=== PATIENT | female | born 1980 | race African-American/Black ===

== ENCOUNTER 2016-11-11 01:35 | Emergency (ER) | payer OTHER ==
[~2016-11-11] VITALS: Ht 167.6 cm; Wt 113.4 kg
[~2016-11-11 01:35] MED LIST: IRON45TA7 PO
[2016-11-11 01:56] VITALS: BP 134/79
--- NOTE | 2016-11-11 02:23 | NUR ---
Patient being evaluated by physician.
--- NOTE | 2016-11-11 02:27 | NUR ---
Fei mena in ED - 11/11/16 at 0235 by MED[facility] ABHIJIT STANLEY TO ER [facility]
--- NOTE | 2016-11-11 02:27 | NUR ---
BIBA BLS TO ER OF3 ACCOMPANIED BY [place] [employer]
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
--- NOTE | 2016-11-11 02:55 | NUR ---
Patient discharged with v/s stable. Written and verbal after care instructions given and explained. Patient verbalized understanding. Ambulatory with steady gait. All questions addressed prior to discharge. Advised to follow up with PMD. CUSTODY.
--- NOTE | 2016-11-11 02:55 | NUR ---
PATIENT BIB [facility] [employer]. PATIENT EXAMINED BY DR. HECTOR. PATIENT MEDICALLY CLEARED AND RELEASED IN CUSTODY IN STABLE CONDITION. ORIGINAL PRE-BOOK FORM GIVEN TO OFFICER LEORA.
[2016-11-11 02:56] VITALS: BP 130/75
== END 2016-11-11 02:55 ==
LOC: MED 01:35
DX: F41.0 Panic disorder [episodic paroxysmal anxiety] (principal); F43.10 Post-traumatic stress disorder, unspecified; Z91.040 Latex allergy status; E11.9 Type 2 diabetes mellitus without complications; J45.909 Unspecified asthma, uncomplicated; K21.9 Gastro-esophageal reflux disease without esophagitis
CPT/HCPCS: 81002; 81025; 93005; 99283; 99284

== ENCOUNTER 2016-12-03 10:46 | Emergency (ER) | payer OTHER ==
[~2016-12-03] VITALS: Ht 172.7 cm; Wt 110.2 kg
[~2016-12-03 10:46] MED LIST changes: -IRON45TA7 PO; +NATURAL IRON65 MG PO; +NORVASC5 MG PO; +[UNRECOGNIZED DRUG - OTHER] PO
[2016-12-03 10:51] VITALS: BP 145/84
--- NOTE | 2016-12-03 11:10 | NUR ---
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
--- NOTE | 2016-12-03 11:55 | NUR ---
DR ALEGRIA AT BEDSIDE.
--- NOTE | 2016-12-03 12:29 | NUR ---
PT RESTING ON BED;NO ACUTE DISTRESS NOTED AT THIS TIME;NEEDS ATTENDED;WILL CONTINUE TO MONITOR PT.
--- NOTE | 2016-12-03 12:49 | NUR ---
Patient discharged with v/s stable. Written and verbal after care instructions given and explained. Patient alert, oriented and verbalized understanding of instructions. Ambulatory with steady gait. All questions addressed prior to discharge. ID band removed. Patient advised to follow up with PMD.Opportunity to ask questions provided and answered.
[2016-12-03 12:50] VITALS: BP 128/82
== END 2016-12-03 12:49 | disposition home or self-care (01) ==
LOC: MED 10:46
DX: T37.3X5A Adverse effect of other antiprotozoal drugs, initial encounter (principal); R03.0 Elevated blood-pressure reading, without diagnosis of hypertension; J45.909 Unspecified asthma, uncomplicated; E11.9 Type 2 diabetes mellitus without complications; K21.9 Gastro-esophageal reflux disease without esophagitis; Z91.040 Latex allergy status; Z88.2 Allergy status to sulfonamides; Y92.89 Other specified places as the place of occurrence of the external cause

== ENCOUNTER 2016-12-26 09:31 | Emergency (ER) | payer OTHER ==
[~2016-12-26] VITALS: Ht 167.6 cm; Wt 111.1 kg
[~2016-12-26 09:31] MED LIST changes: +IRON45TA7 PO; -NATURAL IRON65 MG PO; -NORVASC5 MG PO; -[UNRECOGNIZED DRUG - OTHER] PO
[2016-12-26 09:41] VITALS: BP 145/82
--- NOTE | 2016-12-26 10:03 | NUR ---
PATIENT PRESENTS TO ED WITH BUG BITE TO LEFT KNEE X3 DAYS WITH GEN WEAKNESS . PT STATES IT IS ITCHY;MILD REDNESS NOTED;FEELS NAUEASTED BUT DENIES V/D; SKIN IS PINK/WARM/DRY; AAOX4 WITH EVEN AND STEADY GAIT; LUNGS CLEAR BL; HR EVEN AND REGULAR; PT DENIES ANY FEVER, CP,OR COUGH AT THIS TIME; PATIENT STATES PAIN OF 0/10 AT THIS TIME; VSS; PATIENT POSITIONED FOR COMFORT; HOB ELEVATED; BEDRAILS UP X2; BED DOWN. ER MD MADE AT BEDSIDE.
--- NOTE | 2016-12-26 10:11 | NUR ---
Patient discharged with v/s stable. Written and verbal after care instructions given and explained. Patient alert, oriented and verbalized understanding of instructions. Ambulatory with steady gait. All questions addressed prior to discharge. ID band removed. Patient advised to follow up with PMD. Rx of BENADRYL AND KEFLEX given. Patient educated on indication of medication including possible reaction and side effects. Opportunity to ask questions provided and answered.
[2016-12-26 10:12] VITALS: BP 145/82
== END 2016-12-26 10:11 | disposition home or self-care (01) ==
LOC: MED 09:31
DX: L03.116 Cellulitis of left lower limb (principal); J45.909 Unspecified asthma, uncomplicated; E11.9 Type 2 diabetes mellitus without complications; K21.9 Gastro-esophageal reflux disease without esophagitis; Z88.2 Allergy status to sulfonamides; Z91.040 Latex allergy status
CPT/HCPCS: 99283

== ENCOUNTER 2017-02-16 16:05 | Emergency (ER) | payer OTHER ==
[~2017-02-16] VITALS: Ht 167.6 cm; Wt 112.5 kg
[2017-02-16 16:35] VITALS: BP 147/98
--- NOTE | 2017-02-16 17:53 | NUR ---
Patient to OF.
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
--- NOTE | 2017-02-16 18:18 | NUR ---
Patient being evaluated by SANDRA Jackson at bedside.
[2017-02-16 18:50] VITALS: BP 134/84
--- NOTE | 2017-02-16 18:50 | NUR ---
Chart checked and completed. The patient's care was reviewed and supervised by Kelby Oliver RN.
--- NOTE | 2017-02-16 18:50 | NUR ---
Patient discharged with v/s stable. Written and verbal after care instructions given and explained. Patient alert, oriented and verbalized understanding of instructions. Carried with steady gait. All questions addressed prior to discharge. ID band removed. Patient advised to follow up with PMD. Rx of PREDNISONE 50MG TAB & BENADRYL ALLERGY 25MG given. Patient educated on indication of medication including possible reaction and side effects. Opportunity to ask questions provided and answered.
== END 2017-02-16 18:50 | disposition home or self-care (01) ==
LOC: MED 16:05
DX: T78.49XA Other allergy, initial encounter (principal); R22.0 Localized swelling, mass and lump, head; R13.10 Dysphagia, unspecified; Z88.2 Allergy status to sulfonamides; Z91.040 Latex allergy status; X58.XXXA Exposure to other specified factors, initial encounter
CPT/HCPCS: 81002; 81025; 99283

== ENCOUNTER 2017-02-21 08:19 | Emergency (ER) | payer OTHER ==
[~2017-02-21] VITALS: Ht 167.6 cm; Wt 111.1 kg
[2017-02-21 08:21] VITALS: BP 158/94
--- NOTE | 2017-02-21 08:25 | NUR ---
Patient ambulated to bed 04.
[2017-02-21] MEDS ORDERED: ALBUTEROL SULFATE/IPRATROPIU 3 ML SOL IH ONE (08:30)
--- NOTE | 2017-02-21 08:30 | NUR ---
PT PRESENTS TO ER W/C/O SOB 5 DAYS. HX ASTHMA, GERD. DENIES N/V/D; SKIN IS PINK/WARM/DRY; AAOX4 WITH EVEN AND STEADY GAIT; LUNGS WHZ BL; HR EVEN AND REGULAR; PT DENIES ANY FEVER, CP, SOB, OR COUGH AT THIS TIME; PATIENT STATES PAIN OF 3/10 ON INSPIRATION AT THIS TIME; VSS; PATIENT POSITIONED FOR COMFORT; HOB ELEVATED; BEDRAILS UP X2; BED DOWN. ER MD MADE AWARE OF PT STATUS.
--- NOTE | 2017-02-21 08:33 | NUR ---
RT at bedside to give patient breathing treatment.
--- NOTE | 2017-02-21 08:34 | NUR ---
Dr. Grissom evaluating patient at bedside.
[2017-02-21 09:13] VITALS: BP 148/91
== END 2017-02-21 09:13 | disposition home or self-care (01) ==
LOC: MED 08:19
DX: F45.8 Other somatoform disorders (principal); F41.9 Anxiety disorder, unspecified; J30.2 Other seasonal allergic rhinitis; J45.909 Unspecified asthma, uncomplicated; E11.9 Type 2 diabetes mellitus without complications; K21.9 Gastro-esophageal reflux disease without esophagitis; I10 Essential (primary) hypertension; Z88.2 Allergy status to sulfonamides; Z91.040 Latex allergy status
CPT/HCPCS: 99283; J7620

== ENCOUNTER 2017-04-05 07:05 | Emergency (ER) | payer OTHER ==
[~2017-04-05] VITALS: Ht 167.6 cm; Wt 111.1 kg
[2017-04-05 07:19] VITALS: BP 139/86
[2017-04-05 08:27] LABS: BASOPHILS # (AUTO) 0.2 K/uL (0.00-0.22); BASOPHILS % (AUTO) 3.3 % (0.0-2.0); EOSINOPHILS # (AUTO) 0.3 K/uL (0-0.4); EOSINOPHILS % (AUTO) 4.7 % (0.0-4.0); HEMATOCRIT 33.2 % (36-48); HEMOGLOBIN 10.3 g/dL (12.0-16.0); LYMPHOCYTES % (AUTO) 28.9 % (20.5-51.1); MEAN CORPUSCULAR HEMOGLOBIN 22 pg (27-31); MEAN CORPUSCULAR HGB CONC 31 g/dL (33-37); MEAN CORPUSCULAR VOLUME 72 fL (80-94); MONOCYTES # (AUTO) 0.4 K/uL (0.8-1.0); MONOCYTES % (AUTO) 6.2 % (1.7-9.3); NEUTROPHILS % (AUTO) 56.9 % (42.2-75.2); PLATELET COUNT (AUTO) 387 K/uL (140-450); RED BLOOD CELL COUNT(AUTO) 4.64 MIL/uL (4.20-5.40); RED CELL DISTRIBUTION WIDTH 16.9 % (11.6-13.7); WHITE BLOOD COUNT (AUTO) 6.9 K/uL (4.8-10.8)
[2017-04-05 08:36] LABS: ANION GAP 12.9 (8-16); CARBON DIOXIDE 25.3 mmol/L (21-32); CREATININE 0.8 mg/dL (0.6-1.3); POTASSIUM 4.2 mmol/L (3.5-5.1)
[2017-04-05 09:11] VITALS: BP 149/96
--- NOTE | 2017-04-05 09:12 | NUR ---
Patient discharged with v/s stable. Written and verbal after care instructions given and explained. Patient alert, oriented and verbalized understanding of instructions. Ambulatory with steady gait. All questions addressed prior to discharge. ID band removed. Patient advised to follow up with PMD. Rx of HYDROCHLOROTHIAZIDE given. Patient educated on indication of medication including possible reaction and side effects. Opportunity to ask questions provided and answered.
== END 2017-04-05 09:12 | disposition home or self-care (01) ==
LOC: MED 07:05
DX: I10 Essential (primary) hypertension (principal); J45.909 Unspecified asthma, uncomplicated; E11.9 Type 2 diabetes mellitus without complications; K21.9 Gastro-esophageal reflux disease without esophagitis; Z79.899 Other long term (current) drug therapy; Z88.2 Allergy status to sulfonamides; Z91.040 Latex allergy status
CPT/HCPCS: 36415; 80048; 81025; 83036; 84443; 85025; 99284

== ENCOUNTER 2017-08-25 09:21 | Emergency (ER) | payer OTHER ==
[~2017-08-25] VITALS: Ht 167.6 cm
[2017-08-25 09:30] VITALS: BP 154/81
[2017-08-25 10:15] VITALS: BP 155/92
== END 2017-08-25 10:15 | disposition home or self-care (01) ==
LOC: MED 09:21
DX: F41.9 Anxiety disorder, unspecified (principal); J45.909 Unspecified asthma, uncomplicated; K21.9 Gastro-esophageal reflux disease without esophagitis; I10 Essential (primary) hypertension; Z88.2 Allergy status to sulfonamides; Z91.040 Latex allergy status
CPT/HCPCS: 93005; 99283

== ENCOUNTER 2018-06-02 14:09 | Emergency (ER) | payer OTHER ==
[~2018-06-02] VITALS: Ht 167.6 cm; Wt 110.8 kg
[2018-06-02 14:13] VITALS: BP 161/97
--- NOTE | 2018-06-02 14:20 | NUR ---
pt ambulated to bed 12
--- NOTE | 2018-06-02 14:23 | NUR ---
pt C/O PRODUCTIVE COUGH W/ SOB X TODAY; NO ACCESSORY NO MUSCLES USED; SATTING AT 100 RA;DENIES FEVER, CP HX; ASTHMA RX; ALBUTEROL;
[2018-06-02] MEDS ORDERED: IPRATROPIUM 0.02% 0.5 MG/2.5 ML NEBU INH ONE (14:45)
[2018-06-02] MEDS ORDERED: ALBUTEROL 0.083% 2.5 MG/3 ML NEBU INH ONE ×2 (14:45→16:25)
--- NOTE | 2018-06-02 14:49 | NUR ---
Patient being evaluated by physician at bedside.
--- NOTE | 2018-06-02 14:54 | NUR ---
Breathing treatment administered by respiratory therapist at bedside.
[2018-06-02 17:13] VITALS: BP 156/92
--- NOTE | 2018-06-02 17:13 | NUR ---
Patient discharged with v/s stable. Written and verbal after care instructions given and explained. Patient alert, oriented and verbalized understanding of instructions. Ambulatory with steady gait. All questions addressed prior to discharge. ID band removed. Patient advised to follow up with PMD. Rx of albuterol and mucinex given. Patient educated on indication of medication including possible reaction and side effects. Opportunity to ask questions provided and answered.
== END 2018-06-02 17:13 | disposition home or self-care (01) ==
LOC: MED 14:09
DX: J45.909 Unspecified asthma, uncomplicated (principal); E11.9 Type 2 diabetes mellitus without complications; K21.9 Gastro-esophageal reflux disease without esophagitis; I10 Essential (primary) hypertension; Z91.040 Latex allergy status; Z88.2 Allergy status to sulfonamides
CPT/HCPCS: 71045; 94640; 99284; J7613; J7644; Q0092